=== PATIENT | female | born 1950 | race Caucasian/White ===

== ENCOUNTER 2017-09-23 11:09 | Outpatient (CLI) | payer MEDICARE, BC | END 2017-09-23 11:10 | disposition home or self-care (01) | LOC: BICMAMMO 11:09 | PROVIDERS: ATTEND Family Medicine | DX: Z12.31 Encounter for screening mammogram for malignant neoplasm of breast (principal) | CPT/HCPCS: 77063; 77067 ==

== ENCOUNTER 2018-07-09 14:03 | Emergency (ER) | payer MEDICARE, BC ==
[2018-07-09] MEDS ORDERED: Ibuprofen 600 MG TAB ONE (14:46)
== END 2018-07-09 15:08 | disposition home or self-care (01) ==
LOC: SCSER 14:03
DX: H60.91 Unspecified otitis externa, right ear (principal); J02.9 Acute pharyngitis, unspecified; E03.9 Hypothyroidism, unspecified; I10 Essential (primary) hypertension
CPT/HCPCS: 87081; 87430; 99283

== ENCOUNTER 2018-08-29 11:55 | Outpatient (CLI) | payer MEDICARE, BC ==
--- NOTE | 2018-08-29 13:07 | MRI ---
MRI Cervical Spine WO Con History: [M 49.30 degenerative disc disease. M 53.12 radiculopathy] Comparison: Cervical spine radiographs same day Findings: Cerebral tonsils terminate at level of foramen magnum. No marrow infiltrative process. Zhou c type II endplate changes at C6/C7. No adenopathy. Paraspinal musculature is symmetric. Levels are as follows: C2/C3: Mild uncinate process hypertrophy. Mild facet arthropathy. No neural foraminal or spinal canal narrowing. C3/C4: Mild bilateral osteophytic process hypertrophy. Mild left and moderate right neural foraminal narrowing. No spinal canal narrowing. C4/C5: Mild disc desiccation. Broad-based posterior discussed by complex greatest in the left lateral recess. Moderate left and mild right neural foraminal narrowing. Mild facet arthropathy. Spinal canal measures approximately 1 cm. C5/C6: Circumferential disc osteophyte complex. There is mild effacement of ventral CSF space with ab utment of the cord. Spinal canal measures 9 mm. Mild facet arthropathy. Moderate left and mild right neural foraminal narrowing. C6/C7: Advanced degenerative disc space height loss. Circumferential disc osteophyte complex with sup erimposed right subforaminal and extraforaminal disc protrusion. Moderate to severe right and moderate left neural foraminal narrowing. T7/T1: Normal disc. No neural foraminal or spinal canal narrowing. Impression: Multilevel moderate to severe spondylosis as described greatest from C4-C7.
--- NOTE | 2018-08-29 13:25 | RAD ---
RADIOGRAPH CERVICAL SPINE 6 VIEWS: 08/29/18 HISTORY: 67-year-old female with cervical radiculopathy, degenerative disc disease of cervical spine, cervical spinal stenosis, and cervicalgia (neck pain). TECHNIQUE: Lateral views in flexion, extension, and neutral. AP, open mouth, and Fuchs views. FINDINGS: C2-3 and C3-4 disc spaces are maintained. Disc space narrowing is moderate at C4-5 and C5-6 with smal l end plate osteophytes, and severe at C6-7 with end plate irregularity and moderate sized end plate osteophytes, including those that encroach upon the anterior aspect of the spinal canal. Degenerative facet changes at left upper cervical spine. No major subluxation. No prevertebral soft tissue swelli ng. No high grade DJD at atlanto-axial joints. No instability with flexion and extension. IMPRESSION: Cervical spondylosis with high grade degenerative disc disease at lower cervical spine. JN [] POS: TPC
== END 2018-08-29 11:56 | disposition home or self-care (01) ==
LOC: SCSMRI 11:55
PROVIDERS: ATTEND Physician Assistant Surgical
DX: M50.10 Cervical disc disorder with radiculopathy, unspecified cervical region (principal); M48.02 Spinal stenosis, cervical region; M47.22 Other spondylosis with radiculopathy, cervical region
CPT/HCPCS: 72050; 72141

== ENCOUNTER 2018-09-26 11:13 | Outpatient (CLI) | payer MEDICARE, BC ==
--- NOTE | 2018-09-26 11:43 | MMO ---
Bilateral MAMMO Bilat Screen [facility]. CLINICAL HISTORY: Patient is 68 years old and is seen for screening. The patient has no family history of breast cancer. The patient has no personal history of cancer. The patient has a history of left Excisional Biopsy in 2004 - benign. VIEWS: The views performed were: bilateral craniocaudal with tomosynthesis and bilateral mediolateral oblique with tomosynthesis. FILMS COMPARED: The present examination has been compared to prior imaging studies performed at [facility] on 09/22/2015, 09/22/2016 and 09/23/2017, and at [facility] on 04/26/2012. MAMMOGRAM FINDINGS: There are scattered fibroglandular densities. There are no suspicious masses, suspicious calcifications, or new areas of architectural distortion. IMPRESSION: THERE IS NO MAMMOGRAPHIC EVIDENCE OF MALIGNANCY. A ROUTINE FOLLOW-UP MAMMOGRAM IN 1 YEAR IS RECOMMENDED. THE RESULTS OF THIS EXAM WERE SENT TO THE PATIENT. ACR BI-RADS Category 1 - Negative MAMMOGRAPHY NOTE: 1. A negative mammogram report should not delay a biopsy if a dominant of clinically suspicious mass is present. 2. Approximately 10% to 15% of breast cancers are not detected by mammography. 3. Adenosis and dense breasts may obscure an underlying neoplasm.
== END 2018-09-26 11:14 | disposition home or self-care (01) ==
LOC: BICMAMMO 11:13
PROVIDERS: ATTEND Family Medicine
DX: Z12.31 Encounter for screening mammogram for malignant neoplasm of breast (principal)
CPT/HCPCS: 77063; 77067

== ENCOUNTER 2018-10-20 12:43 | Outpatient (CLI) | payer MEDICARE, BC ==
[2018-10-20 15:00] LABS: Hemoglobin 14.3 g/dL (12.0-16.0); Mean Corpuscular Hemoglobin 30.8 pg (27.0-31.0); Mean Corpuscular Volume 90.6 fL (78.0-98.0); Platelet Count 323 thou/uL (130-400); Red Blood Cell (RBC) Count 4.65 mill/uL (4.20-5.40); White Blood Cell (WBC) Count 6.1 thou/uL (4.8-10.8)
[2018-10-20 15:08] LABS: PTT 31.7 SEC (22.9-36.1); Prothrombin Time 12.9 SEC (12.0-14.7)
[2018-10-20 15:28] LABS: Anion Gap 15 mmol/L (10-20); BUN (Urea Nitrogen) 15 mg/dL (9.8-20.1); Calc. Creatinine Clearance 0 mL/min (70-130); Calcium 9.5 mg/dL (7.8-10.44); Carbon Dioxide 22 mmol/L (23-31); Chloride 105 mmol/L (98-107); Estimated GFR-MDRD 65; Glucose 106 mg/dL (80-115); Sodium 138 mmol/L (136-145)
--- NOTE | 2018-10-23 09:01 | EKG ---
Test Reason : Blood Pressure : / mmHG Vent. Rate : 074 BPM Atrial Rate : 074 BPM P-R Int : 170 ms QRS Dur : 080 ms QT Int : 376 ms P-R-T Axes : 054 024 052 degrees QTc Int : 417 ms Normal sinus rhythm Cannot rule out Anterior infarct , age undetermined Abnormal ECG No previous ECGs available Confirmed by DR. Lucina GRANADOS ([id number]) on 10/23/2018 9:01:16 AM Referred By: CHIDI Confirmed By:DR. Lucina GRANADOS
== END 2018-10-20 12:44 | disposition home or self-care (01) ==
LOC: LABBT 12:43
PROVIDERS: ATTEND Surgery
DX: Z01.818 Encounter for other preprocedural examination (principal); M54.12 Radiculopathy, cervical region; M48.02 Spinal stenosis, cervical region
CPT/HCPCS: 80048; 85027; 85610; 85730; 93005; 93010

== ENCOUNTER 2018-10-26 05:48 | Day surgery (SDC) | payer MEDICARE, BC ==
[2018-10-26] MEDS ORDERED: ceFAZolin Sodium (SDC) 2 GM/100 ML BAG ONE (06:40)
[2018-10-26] MEDS ORDERED: Thrombin 5000 UNITS/5 ML VIAL ONE (07:05)
[2018-10-26] MEDS ORDERED: Sodium Chloride 0.9% 10 ML ONE (07:05)
[2018-10-26] MEDS ORDERED: Fentanyl 100 MCG/2 ML VIAL ONE ×2 (07:23→10:46)
[2018-10-26] MEDS ORDERED: HYDROcodone/Acetaminophen 7.5/325 mg Tablet PO PRN (09:41)
[2018-10-26] MEDS ORDERED: traMADol HCl 50 MG TAB PO PRN (09:41)
[2018-10-26] MEDS ORDERED: Bisacodyl 10 MG SUPP PR PRN (09:41)
[2018-10-26] MEDS ORDERED: Acetaminophen 325 MG TAB PO PRN (09:41)
[2018-10-26] MEDS ORDERED: Fleet Enema 133 ML BOT PR PRN (09:41)
[2018-10-26] MEDS ORDERED: Acetaminophen/Codeine 30-300mg Tablet PO PRN (09:41)
[2018-10-26] MEDS ORDERED: Mag-Al 1200 mg/1200 mg/30 ML UDCUP PO PRN (09:41)
[2018-10-26] MEDS ORDERED: Milk Of Magnesia 30 ML UDCUP PO PRN (09:41)
[2018-10-26] MEDS ORDERED: Ondansetron PF 4 MG/2 ML Vial IVP PRN (09:41)
[2018-10-26] MEDS ORDERED: CEFAZOLIN 2 GM in Premix Bag 1 BAG IVPB SCH (09:45)
[2018-10-26] MEDS ORDERED: PACU-Morphine 4MG/ML VIAL SLOW IVP PRN (09:53)
[2018-10-26] MEDS ORDERED: Morphine Sulfate 2 MG/ML SYRINGE SLOW IVP PRN (09:53)
[2018-10-26] MEDS ORDERED: Promethazine HCl 25 MG/ML VIAL SLOW IVP PRN (09:53)
[2018-10-26] MEDS ORDERED: HYDROmorphone 2 MG/ML VIAL SLOW IVP PRN (09:53)
[2018-10-26] MEDS ORDERED: Promethazine HCl 25 MG/ML VIAL IM PRN (09:53)
[2018-10-26] MEDS ORDERED: Ondansetron HCl/PF 4 MG/2 ML Vial IVP PRN (09:53)
--- NOTE | 2018-10-26 11:41 | OP ---
DATE OF PROCEDURE: 10/26/2018 LOCATION: OR 11. WOUND CLASSIFICATION: Type 1 wound. SCRAP BURNER: Rex Madrigal PA-C PREPROCEDURE DIAGNOSIS: Cervical stenosis with neck and arm pain. POSTPROCEDURE DIAGNOSIS: Cervical stenosis with neck and arm pain. PROCEDURES PERFORMED: 1. C6-C7 anterior diskectomy for decompression of spinal cord nerve roots. 2. Preparation of endplates C6-C7 for arthrodesis with placement of interbody spacer packed with local bone autograft obtained with same incision allograft, C6-C7. 3. Anterior cervical plate and screw fixation, C6-C7. 4. Use of operative microscope for microdissection. DESCRIPTION OF PROCEDURE: After informed consent was obtained from the patient, the patient was brought to the OR. Proper patient, pause, and identification were carried out. She was placed under excellent general endotracheal anesthesia and positioned supine on the OR table. All appropriate points were padded. We identified the right anterior transverse neda in the neck crease that would allow for approach to the C6-C7 segment. This area was sterilely cleansed, prepared and draped. Proper patient, pause, and identification were carried out. The wound was then opened with a combination of sharp, monopolar, and blunt dissection. We proceeded lateral to the tracheoesophageal bundle medial to the right carotid sheath. We identified the prevertebral layer of deep cervical fascia and the anterior C6-C7 segments. Localization film confirmed our area of interest and maximize retraction occurred. We then performed distraction at C6-C7 and a microscope was brought in the field. C6-C7 diskectomy was performed with excellent decompression of the spinal cord and bilateral C7 nerve roots. The endplates were prepared and interbody spacer packed with graft was placed. Anterior cervical plate and screw fixation then occurred with final tightening. Following removal of the microscope, copious irrigation, maximal hemostasis occurred throughout. We were pleased with both gross and fluoroscopic visualization of the construct. We then closed the wound in anatomic layers over drain and the patient emerged from anesthesia. Job ID: [id number]
[2018-10-26] MEDS: tiZANidine HCl 4 MG TAB PO PRN ×2 (13:17→21:12)
[2018-10-26] MEDS ORDERED: Hyoscyamine Sulfate SL 0.125 mg Tablet PO PRN ×2 (13:53→14:00)
[2018-10-26] MEDS ORDERED: CEFAZOLIN 2 GM in Sodium Chloride 0.9% 100 ML IVPB SCH ×2 (14:00→16:00)
[2018-10-26 15:26] VITALS: BMI 27.6
[2018-10-26] MEDS ORDERED: CEFAZOLIN 2 GM, IV Admixture Fee-Chemo 1 UNITS in Sodium Chloride 0.9% 100 ML IVPB SCH (17:15)
[2018-10-26] MEDS: Sodium Chloride 0.9% 1,000 ML IV SCH ×2 (17:17→22:56)
[2018-10-26] MEDS ORDERED: Progesterone,Micronized 100 MG CAP PO SCH (21:00)
[2018-10-27] MEDS: CEFAZOLIN 2 GM, IV Admixture Fee-Chemo 1 UNITS in Sodium Chloride 0.9% 100 ML IVPB SCH ×2 (01:33→10:00)
[2018-10-27] MEDS ORDERED: Levothyroxine Sodium 100 MCG TAB PO SCH (06:00)
[2018-10-27] MEDS ORDERED: Lisinopril/Hydrochlorothiazide 20 mg/12.5 mg Tablet PO SCH (09:00)
[2018-10-27] MEDS ORDERED: Liothyronine Sodium 25 MCG TAB PO SCH ×2 (09:00)
[2018-10-27] MEDS ORDERED: Non-Formulary Item 1 EACH (Levothyroxine Sodium [Synthroid] 1 TAB) PO SCH (09:00)
[2018-10-27] MEDS ORDERED: Loratadine 10 MG TAB PO SCH (09:00)
[2018-10-27] MEDS ORDERED: CETIRIZINE HCL PO SCH (09:00)
[2018-10-27] MEDS ORDERED: Prevnar 13-Val Conj/PF 0.5 ML SYRINGE IM ONE (09:00)
[2018-10-27 11:12] VITALS: BP 168/73; TEMP 97.9
--- NOTE | 2018-10-27 11:46 | PRG ---
DATE OF SERVICE: Ms. Barajas is doing well postoperative day 1 from C6-C7 ACDF. She has improvement in her upper extremity strength. We will remove her drain and discharge. Job ID: [id number]
== END 2018-10-27 13:26 | disposition home or self-care (01) ==
LOC: SDC 05:48 → SURG A 09:40 → SDC 10-27 13:26
PROVIDERS: ATTEND Surgery
PROC: 0RG10A0 Fusion of Cervical Vertebral Joint with Interbody Fusion Device, Anterior Approach, Anterior Column, Open Approach (ICD-10-PCS; principal; 2018-10-26)
PROC: 0RG1071 Fusion of Cervical Vertebral Joint with Autologous Tissue Substitute, Posterior Approach, Posterior Column, Open Approach (ICD-10-PCS; 2018-10-26)
PROC: 0RT30ZZ Resection of Cervical Vertebral Disc, Open Approach (ICD-10-PCS; 2018-10-26)
DX: M48.02 Spinal stenosis, cervical region (principal); M54.12 Radiculopathy, cervical region
CPT/HCPCS: 20930; 20936; 22551; 22845; 22853; 76000; 90670; C1713; C1776; G0009; 90471; J0131; J0690; J3010; J3490

== ENCOUNTER 2018-12-13 08:31 | Outpatient (CLI) | payer MEDICARE, BC ==
--- NOTE | 2018-12-13 09:13 | RAD ---
XR Cerv Sp Ap Lat STANDARD History: M 53.2 neck pain Comparison: MRI cervical spine August 29, 2018 Findings: Satisfactory appearance ACDF hardware at C5/C6 with normal location of the discectomy cage. No acute fracture or malalignment. Moderate narrowing of the C4/C5 and C5/6 disc spaces with circumferential disc osteophyte complexes. Mild calcifications of the carotid bulbs. Impression: Satisfactory postoperative appearance.
== END 2018-12-13 08:32 | disposition home or self-care (01) ==
LOC: TBSIIMAG 08:31
PROVIDERS: ATTEND Surgery
DX: M54.2 Cervicalgia (principal); Z98.1 Arthrodesis status
CPT/HCPCS: 72040

== ENCOUNTER 2021-03-05 12:24 | Outpatient (CLI) | payer MEDICARE, BC | END 2021-03-05 12:25 | disposition home or self-care (01) | LOC: BICMAMMO 12:24 | PROVIDERS: ATTEND Family Medicine | DX: Z12.31 Encounter for screening mammogram for malignant neoplasm of breast (principal) | CPT/HCPCS: 77063; 77067 ==